=== PATIENT | male | born 1985 | race Caucasian/White ===

== ENCOUNTER → 2018-01-17 | Outpatient (CLI) | payer BC ==
[~2018-01-17] MED LIST: TRAM-627 PO
--- NOTE | 2018-01-17 16:56 | RADIOLOGY IMAGING REPORT ---
FACILITY: [facility] PATIENT NAME: Tristen Lee : 1985 MR: [id number] V: [id number] EXAM DATE: ORDERING PHYSICIAN: LELO MOREIRA TECHNOLOGIST: Location: [facility] - [place], [place] Patient: Tristen Lee : 1985 Visit/Account:[id number] Date of Sevice: 01/17/2018 THYROID HISTORY: COMPARISON: September 13, 2016 FINDINGS: SIZE: Diffusely enlarged left greater than right Right lobe: 4.5 x 1.6 x 1.2 cm Left lobe: 7.1 x 4.5 x 7.4 cm Isthmus: 9 mm PARENCHYMA: Diffusely heterogeneous NODULES: Right lobe: * None discrete. Left lobe: * Within the superior aspect and mid body there is a large hyperechoic nodule with scattered calcifi cations that measures 5.7 cm in greatest dimension. Previously this was 5.0 cm * Within the inferomedial aspect there is a solid hyperechoic nodule that measures 5.5 cm in greates t dimension. Previously this was 4.0 cm Isthmus: * There is a solid hypoechoic nodule that measures 9 mm, previously was 11 mm VASCULARITY: Diffusely increased ADDITIONAL FINDINGS: None. IMPRESSION: On the left, there has been slight enlargement of the 2 large hyperechoic solid nodules. Recommend co rrelation with prior pathology results. REFERENCE: 2015 [place] [employer] Management Guidelines for Adult Patients with Thyroid Nodules and D ifferentiated Thyroid Cancer: The [place] [employer] Guidelines Task Force on Thyroid Nodul es and Differentiated Thyroid Cancer. SONOGRAPHIC PATTERNS: * Benign: Purely cystic nodules (no solid component); estimated risk of malignancy <1 percent; no bi opsy recommended. * Very Low Suspicion: Spongiform or partially cystic nodules without any of the sonographic features described in low, intermediate, or high suspicion patterns; estimated risk of malignancy <3 percent; consider FNA at > 2 cm (Observation without FNA is also a reasonable option). * Low Suspicion: Isoechoic or hyperechoic solid nodule, or partially cystic nodule with eccentric so lid areas, without microcalcification, irregular margin or ETE (extra-thyroidal extension), or taller than wide shape; estimated risk of malignancy 5-10 percent; recommend FNA at >1.5 cm. * Intermediate Suspicion: Hypoechoic solid nodule with smooth margins without microcalcifications, E TE (extra-thyroidal extension), or taller than wide shape; estimated risk of malignancy 10-20 percent ; recommend FNA at > 1 cm. * High Suspicion: Solid hypoechoic nodule or solid hypoechoic component of a partially cystic nodule with one or more of the following features: irregular margins (infiltrative, microlobulated), microc alcifications, taller than wide shape, rim calcifications with small extrusive soft tissue component, evidence of ETE (extra-thyroidal extension); estimated risk of malignancy >70-90 percent; recommend FNA at > 1 cm. NOTES: * Although a sonographically suspicious subcentimeter thyroid nodule without evidence of extrathyroi jessy extension or sonographically suspicious lymph nodes may be observed with close sonographic follow -up rather than pursuing immediate FNA, patient age and preference may modify decision-making. * A > 50% interval increase in nodule volume and/or development of new suspicious sonographic featur es are felt to be a valid reasons for potential re-aspiration of a nodule previously shown to have be nign FNA cytology. Report Dictated By: Benjamin Zepeda at 01/17/2018 4:43 PM Report E-Signed By: Benjamin Zepeda at 01/17/2018 4:52 PM WSN:[id number]
== END ==
LOC: US 01:09
PROVIDERS: ATTEND Internal Medicine
DX: E04.2 Nontoxic multinodular goiter (principal)
CPT/HCPCS: 76536

== ENCOUNTER 2018-07-19 14:30 | Emergency (ER) | payer BC ==
[2018-07-19] MEDS ORDERED: LEVO50TA86 PO (14:40)
[2018-07-19] MEDS ORDERED: fentaNYL CITR 100 MCG/2 ML AMP IVP ONE ×2 (14:40→15:40)
[2018-07-19] MEDS ORDERED: KETAMINE HCL 500 MG/5 ML VIAL IVP ONE (14:45)
[2018-07-19] MEDS ORDERED: PROPOFOL EMUL 10MG/ML 20 ML VL IV ONE (14:50)
[2018-07-19] MEDS ORDERED: ONDANSETRON 4 MG/2 ML VIAL IVP ONE (14:50)
--- NOTE | 2018-07-19 15:32 | RADIOLOGY IMAGING REPORT ---
FACILITY: [facility] - [place] PATIENT NAME: Tristen Lee : 1985 MR: [id number] V: [id number] EXAM DATE: ORDERING PHYSICIAN: REYNOLD MCCULLOUGH TECHNOLOGIST: Location: [facility] - [place] Patient: Tristen Lee : 1985 Visit/Account:[id number] Date of Sevice: 07/19/2018 ANKLE 3 VIEW MIN LEFT, TIBIA FIBULA LEFT Indication: Left ankle pain after injury. Comparison: None Available Findings: 3 views of the left ankle and 2 views of the left lower leg. There is anteromedial dislocation of the tibia over the talus. There is a oblique fracture of the distal fibula. Syndesmosis appears intact a nd the proximal aspect of fibula is displaced medially along with the tibia. No indication of fractur e of the tibia or talus. Talus does show small bone island. No other bony lesions. No other areas of dislocation. Soft tissues show swelling. No radiopaque foreign body. The remaining left lower leg shows no indication of fracture or dislocation. Couple bone island seen in the proximal tibia. No other bony lesions. The knee is unremarkable. The remaining soft tissues ar e unremarkable. IMPRESSION: 1. Fracture dislocation of the left ankle as above. Report Dictated By: Koko Son at 07/19/2018 3:24 PM Report E-Signed By: Koko Son at 07/19/2018 3:28 PM WSN:[id number]
--- NOTE | 2018-07-19 15:32 | RADIOLOGY IMAGING REPORT ---
FACILITY: [facility] PATIENT NAME: Tristen Lee : 1985 MR: [id number] V: [id number] EXAM DATE: ORDERING PHYSICIAN: REYNOLD MCCULLOUGH TECHNOLOGIST: Location: [facility] Patient: Tristen Lee : 1985 Visit/Account:[id number] Date of Sevice: 07/19/2018 ANKLE 3 VIEW MIN LEFT, TIBIA FIBULA LEFT Indication: Left ankle pain after injury. Comparison: None Available Findings: 3 views of the left ankle and 2 views of the left lower leg. There is anteromedial dislocation of the tibia over the talus. There is a oblique fracture of the distal fibula. Syndesmosis appears intact a nd the proximal aspect of fibula is displaced medially along with the tibia. No indication of fractur e of the tibia or talus. Talus does show small bone island. No other bony lesions. No other areas of dislocation. Soft tissues show swelling. No radiopaque foreign body. The remaining left lower leg shows no indication of fracture or dislocation. Couple bone island seen in the proximal tibia. No other bony lesions. The knee is unremarkable. The remaining soft tissues ar e unremarkable. IMPRESSION: 1. Fracture dislocation of the left ankle as above. Report Dictated By: Koko Son at 07/19/2018 3:24 PM Report E-Signed By: Koko Son at 07/19/2018 3:28 PM WSN:[id number]
--- NOTE | 2018-07-19 15:40 | ER Report ---
History and Physical Time Seen By MD: 14:47 Hx. of Stated Complaint: LEFT ANKLE PAIN WITH DEFORMITY. HPI/ROS CHIEF COMPLAINT: Left ankle pain and deformity HISTORY OF PRESENT ILLNESS: 33-year-old male patient presents to emergency room with complaint of left ankle pain and deformity. 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 He states that as he was skating his left skate caught in the eyes. He states that he fell down. He states he was able to get up only did he felt that there was looseness. He states that when he got up that it did shift and was not able to stand. Patient states that he does have significant amounts of pain. He denies having any numbness or tingling to his foot. REVIEW OF SYSTEMS: Respiratory: No cough, no dyspnea. Cardiovascular: No chest pain, no palpitations. Gastrointestinal: No vomiting, no abdominal pain. Musculoskeletal: As noted above Allergies: Coded Allergies: No Known Drug Allergies (Unverified , 01/31/13) Home Meds Active Scripts Oxycodone Hcl/Acetaminophen (PERCOCET 5-325 MG TABLET) 1 Each Tablet, 1 EACH PO Q4-6H PRN for PAIN, #20 TAB Prov:SADIAREYNOLD [employer] 07/19/18 Reported Medications Levothyroxine Sodium (LEVOTHYROXINE SODIUM) 50 Mcg Tablet, 50 MCG PO QDAY, TAB 07/19/18 Discontinued Reported Medications Tramadol Hcl (ULTRAM) 50 Mg Tablet, 50 - 100 MG PO Q4-6H 01/31/13 Past Medical/Surgical History Patient has a past medical history of hypothyroidism. Patient has had surgery on his knee and shoulder. Reviewed Nurses Notes: Yes Social History of Hx Smoking: No Exposure to Second Hand Smoke?: No Hx Substance Use Disorder: No Hx Alcohol Use: No Constitutional Vital Sign - Last 24 Hours 07/19/18 07/19/18 07/19/18 07/19/18 14:30 14:35 14:37 14:38 Pulse ? 92 Resp 22 B/P (MAP) 132/96 132/96 (108) Pulse Ox 95 O2 Delivery Room Air 07/19/18 07/19/18 07/19/18 07/19/18 14:40 14:45 14:50 14:55 Pulse 91 89 85 87 Pulse Ox 96 93 95 93 1207/19/18 07/19/18 07/19/18 15:00 15:05 15:10 15:15 Pulse 87 85 84 79 Resp 30 14 16 B/P (MAP) 146/92 (110) 124/81 (95) Pulse Ox 93 94 93 94 07/19/18 07/19/18 07/19/18 07/19/18 15:20 15:25 15:30 15:35 Pulse 86 92 100 99 Resp 12 18 22 10 B/P (MAP) 135/88 (104) 142/98 (113) 160/98 (118) 146/87 (106) Pulse Ox 96 94 93 98 07/19/18 07/19/18 07/19/18 07/19/18 15:40 15:45 15:50 15:55 Pulse 86 ??? 79 81 Resp 19 12 10 10 B/P (MAP) 173/100 (124) 146/110 (122) 146/97 (113) 141/93 (109) Pulse Ox 85 99 86 89 07/19/18 07/19/18 07/19/18 07/19/18 16:00 16:05 16:10 16:15 Pulse 77 73 73 75 Resp 15 14 10 15 B/P (MAP) 130/85 (100) 129/97 (108) 127/89 (102) 127/82 (97) Pulse Ox 97 81 96 95 07/19/18 07/19/18 07/19/18 07/19/18 16:20 16:25 16:30 16:35 Pulse 69 ??? 74 85 Resp 22 9 13 12 B/P (MAP) 120/78 (92) 132/97 (109) 121/88 (99) 128/83 (98) Pulse Ox 96 95 94 97 07/19/18 07/19/18 07/19/18 07/19/18 16:40 16:45 16:50 16:55 Pulse 83 83 77 81 Resp 27 17 11 8 B/P (MAP) 133/86 (102) 134/88 (103) 131/98 (109) 133/81 (98) Pulse Ox 96 95 97 93 07/19/18 07/19/18 07/19/18 17:00 17:05 17:10 Pulse 82 81 80 Resp 11 16 12 B/P (MAP) 145/92 (109) 130/78 (95) 137/88 (104) Pulse Ox 91 91 92 Physical Exam General Appearance: The patient is alert, has no immediate need for airway protection and no current signs of toxicity. Respiratory: Chest is non tender, lungs are clear to auscultation. Cardiac: Regular rate and rhythm Gastrointestinal: Abdomen is soft and non tender, no masses, bowel sounds normal. Musculoskeletal: Left ankle appears to be displaced with the foot pointing lat erally.. Tender to palpitation. Patient able to move toes. Patient pulse 2+. Capillary refill 3 - 5 seconds. [DIFFERENTIAL DIAGNOSIS: After history and physical exam differential diagnosis was considered for dislocated ankle, ankle fracture, tibia fracture. Medical Decision Making EKG/Imaging Imaging ANKLE 3 VIEW MIN LEFT HISTORY: POST REDUCTION COMPARISONS MADE TO A PREVIOUS ANKLE FILM FROM 2:56 PM. FINDINGS: There is been reduction of the previously seen and described anterior medial dislocation. There is a slight persistent tibial subluxation medially and widening of the medial joint by 7 mm. Spiral fracture through the distal fibular metadiaphysis reidentified. There is posterior cortical offset of the distal fibular fracture by 5 mm. . IMPRESSION: 1. Reduction of fracture dislocation of the left ankle as described. Report Dictated By: Kameron Rosales MD at 07/19/2018 4:07 PM Report E-Signed By: Kameron Rosales MD at 07/19/2018 4:10 PM ANKLE 3 VIEW MIN LEFT, TIBIA FIBULA LEFT Indication: Left ankle pain after injury. Comparison: None Available Findings: 3 views of the left ankle and 2 views of the left lower leg. There is anteromedial dislocation of the tibia over the talus. There is a oblique fracture of the distal fibula. Syndesmosis appears intact and the proximal aspect of fibula is displaced medially along with the tibia. No indication of fracture of the tibia or talus. Talus does show small bone island. No other bony lesions. No other areas of dislocation. Soft tissues show swelling. No radiopaque foreign body. The remaining left lower leg shows no indication of fracture or dislocation. Couple bone island seen in the proximal tibia. No other bony lesions. The knee is unremarkable. The remaining soft tissues are unremarkable. IMPRESSION: 1. Fracture dislocation of the left ankle as above. Report Dictated By: Koko Son at 07/19/2018 3:24 PM Report E-Signed By: Koko Son at 07/19/2018 3:28 PM ANKLE 3 VIEW MIN LEFT, TIBIA FIBULA LEFT Indication: Left ankle pain after injury. Comparison: None Available Findings: 3 views of the left ankle and 2 views of the left lower leg. There is anteromedial dislocation of the tibia over the talus. There is a oblique frac ture of the distal fibula. Syndesmosis appears intact and the proximal aspect of fibula is displaced medially along with the tibia. No indication of fracture of the tibia or talus. Talus does show small bone island. No other bony lesions. No other areas of dislocation. Soft tissues show swelling. No radiopaque foreign body. The remaining left lower leg shows no indication of fracture or dislocation. Couple bone island seen in the proximal tibia. No other bony lesions. The knee is unremarkable. The remaining soft tissues are unremarkable. IMPRESSION: 1. Fracture dislocation of the left ankle as above. Report Dictated By: Koko Son at 07/19/2018 3:24 PM Report E-Signed By: Koko Son at 07/19/2018 3:28 PM ED Course/Re-evaluation ED Course Patient arrived at the ED and was placed in a room. History and physical were obtained. Differential diagnoses were considered. IV access was obtained. Pain medication was administered. X-ray was obtained of the left ankle. X-ray did show bimalleolar fracture of the left ankle with dislocation laterally. Plan of treatment was discussed with the patient. Risks and benefits were discussed with patient regarding conscious sedation. Consent was obtained. Propofol and Ketamine was given for conscious sedation. Manual manipulation was done to left ankle. Splint was applied to lower leg. Capillary refill now 1 -2 seconds. Pedal pulse 2+. X-ray was repeated. Ankle in appropriate anatomical position. Patient recovering from conscious sedation appropriately. Pain medication given to patient. Prescription for Percocet sent to pharmacy. Patient instructed to call ortho on Saturday. Discharged instructions given. Patient discharged to home. Procedure: Procedural sedation. A pre-sedation evaluation was completed on the patient at 1445. Patient is an appropriate candidate for procedural sedation. The risks of the sedation were discussed with the patient. A time out was completed. The patient was reevaluated immediately prior to initiation of sedation. The patient was sedated with propofol and ketamine. The patient was monitored with continuous pu lse oximetry and pharmacist apprentice. There were no complications and no significant hypoxemia. I remained at the bedside for the sedation. The total time I spent in the procedural sedation was 15 minutes. Post sedation evaluation: Patient was alert and cooperative, hemodynamically stable with appropriate respiratory status, temperature and pain control without ongoing nausea and vomiting. Sedation was done by Dr. Gautam Procedure: Fracture dislocation reduction The ankle was reduced in the usual fashion without complications. Post reduction the patient's neurovascular exam is normal. Post reduction x-ray demonstrates reduction of the joint to the anatomic position. The procedure was performed by myself and the direct supervision of Dr. Gautam. Procedure: Splint placement. A posterior and stirrup splint was applied. After application of the splint I re-examined the patient. The splint was adequately immobilizing the joint and distal to the splint the patient's circulation and sensation was intact. Decision to Disposition Date: Jul 19, 2018 Decision to Disposition Time: 16:35 Depart Departure Latest Vital Signs Vital Signs Date Time Temp Pulse Resp B/P (MAP) Pulse Ox O2 Delivery O2 Flow Rate FiO2 07/19/18 17:10 80 12 137/88 (104) 92 07/19/18 14:37 Room Air Impression: Primary Impression: Bimalleolar ankle fracture Condition: Improved Disposition: HOME OR SELF-CARE Referrals: ALBERTA VEE DO (PCP) VALERIA VU MD [place] Oxycodone Hcl/Acetaminophen (PERCOCET 5-325 MG TABLET) 1 Each Tablet 1 EACH PO Q4-6H PRN for PAIN, #20 TAB Prov: SADIAREYNOLD FNP 07/19/18 Patient Instructions: Ankle Fracture (ED) Additional Instructions: Limit activity by pain. Ice the ankle through the splint; 2-3 times a day for 20-30 minutes. If the splint is feeling too tight you may loosen the kobi wrap and rewrap it. Follow up with [facility], call Saturday to make an appointment. Keep the splint dry, wrap it with a bag and tape to keep the water out. Return to the ER with uncontrollable pain or numbness to the foot. You may take Ibuprofen as needed for pain in addition to the pain medication. Don't take any additional Tylenol while on the pain medication. Problem Qualifiers Primary Impression: Bimalleolar ankle fracture Encounter type: initial encounter Fracture type: closed Laterality: left Qualified Codes: S82.842A - Displaced bimalleolar fracture of left lower leg, initial encounter for closed fracture REYNOLD MCCULLOUGH Jul 19, 2018 15:40
--- NOTE | 2018-07-19 16:13 | RADIOLOGY IMAGING REPORT ---
FACILITY: [facility] - [place] PATIENT NAME: Tristen Lee : 1985 MR: [id number] V: [id number] EXAM DATE: ORDERING PHYSICIAN: REYNOLD MCCULLOUGH TECHNOLOGIST: Location: [facility] Patient: Tristen Lee : 1985 Visit/Account:[id number] Date of Sevice: 07/19/2018 ANKLE 3 VIEW MIN LEFT HISTORY: POST REDUCTION COMPARISONS MADE TO A PREVIOUS ANKLE FILM FROM 2:56 PM. FINDINGS: There is been reduction of the previously seen and described anterior medial dislocation. T here is a slight persistent tibial subluxation medially and widening of the medial joint by 7 mm. Spi ral fracture through the distal fibular metadiaphysis reidentified. There is posterior cortical offse t of the distal fibular fracture by 5 mm. . IMPRESSION: 1. Reduction of fracture dislocation of the left ankle as described. Report Dictated By: Kameron Rosales MD at 07/19/2018 4:07 PM Report E-Signed By: Kameron Rosales MD at 07/19/2018 4:10 PM WSN:[id number]
[2018-07-19] MEDS ORDERED: HYDROMORPHONE HCL 1 MG/ML SYRINGE IVP ONE (16:25)
[2018-07-19 17:10] VITALS: BP 137/88
[2018-07-19] MEDS ORDERED: OXYC-865 PO (17:20)
== END 2018-07-19 16:46 | disposition home or self-care (01) ==
LOC: ER 14:43
DX: S82.842A Displaced bimalleolar fracture of left lower leg, initial encounter for closed fracture (principal); W18.39XA Other fall on same level, initial encounter; Y93.22 Activity, ice hockey
CPT/HCPCS: 27810; 96374; 96375; 96376; 99152; 99153; 99285; J1170; J2704; J3010

== ENCOUNTER → 2019-02-09 | Outpatient (CLI) | payer BC, OTHER ==
[~2019-02-09] MED LIST changes: +LEVO50TA86 PO; +OXYC-865 PO
--- NOTE | 2019-02-09 10:06 | RADIOLOGY IMAGING REPORT ---
[place] [facility] [place]IENT NAME: Tristen Lee : 1985 MR: [id number] V: [id number] EXAM DATE: ORDERING PHYSICIAN: LELO MOREIRA TECHNOLOGIST: [place] [facility] [place] Patient: Tristen Lee : 1985 Visit/Account:[id number] Date of Sevice: 02/09/2019 THYROID HISTORY: Multinodular goiter, history of benign thyroid biopsy COMPARISON: January 17, 2018 FINDINGS: SIZE: Right lobe: 4.2 x 1.5 x 1.5 cm Left lobe: 8 x 4.7 x 5.7 cm Isthmus: 6.6 mm PARENCHYMA: Diffusely heterogeneous NODULES: Right lobe: * None discrete. Left lobe: * In the mid to superior pole the left lobe there is a 6.6 x 4.6 x 4.9 cm well-circumscribed slightl y echogenic nodule. This previously measured 5.7 cm in greatest dimension * In the inferior left lobe there is a well-circumscribed slightly echogenic nodule measuring 4.8 x 3.8 x 4.6 cm. This previously measured 5.5 cm Isthmus: * There is a 1 cm well-circumscribed hypoechoic nodule right side of the isthmus that appears relati vely unchanged VASCULARITY: Within normal limits. ADDITIONAL FINDINGS: None. IMPRESSION: The more superior of the two echogenic nodules in the left lobe has slightly increased in size when c ompared to the prior study. The remaining inferior nodule is slightly decreased in size. Correlatio n with previous pathology results recommended REFERENCE: 2015 [place] [employer] Management Guidelines for Adult Patients with Thyroid Nodules and D ifferentiated Thyroid Cancer: The [place] [employer] Guidelines Task Force on Thyroid Nodul es and Differentiated Thyroid Cancer. SONOGRAPHIC PATTERNS: * Benign: Purely cystic nodules (no solid component); estimated risk of malignancy <1 percent; no bi opsy recommended. * Very Low Suspicion: Spongiform or partially cystic nodules without any of the sonographic features described in low, intermediate, or high suspicion patterns; estimated risk of malignancy <3 percent; consider FNA at > 2 cm (Observation without FNA is also a reasonable option). * Low Suspicion: Isoechoic or hyperechoic solid nodule, or partially cystic nodule with eccentric so lid areas, without microcalcification, irregular margin or ETE (extra-thyroidal extension), or taller than wide shape; estimated risk of malignancy 5-10 percent; recommend FNA at >1.5 cm. * Intermediate Suspicion: Hypoechoic solid nodule with smooth margins without microcalcifications, E TE (extra-thyroidal extension), or taller than wide shape; estimated risk of malignancy 10-20 percent ; recommend FNA at > 1 cm. * High Suspicion: Solid hypoechoic nodule or solid hypoechoic component of a partially cystic nodule with one or more of the following features: irregular margins (infiltrative, microlobulated), microc alcifications, taller than wide shape, rim calcifications with small extrusive soft tissue component, evidence of ETE (extra-thyroidal extension); estimated risk of malignancy >70-90 percent; recommend FNA at > 1 cm. NOTES: * Although a sonographically suspicious subcentimeter thyroid nodule without evidence of extrathyroi jessy extension or sonographically suspicious lymph nodes may be observed with close sonographic follow -up rather than pursuing immediate FNA, patient age and preference may modify decision-making. A > 50% interval increase in nodule volume and/or development of new suspicious sonographic features are felt to be a valid reasons for potential re-aspiration of a nodule previously shown to have benig n FNA cytology. Report Dictated By: Chitra Altamirano MD at 02/09/2019 9:55 AM Report E-Signed By: Chitra Altamirano MD at 02/09/2019 10:01 AM WSN:[id number]
== END ==
LOC: US 01:16
PROVIDERS: ATTEND Internal Medicine
DX: E04.2 Nontoxic multinodular goiter (principal)
CPT/HCPCS: 76536